=== PATIENT | male | born 1990 | race Caucasian/White ===

== ENCOUNTER 2018-10-10 08:46 | Emergency (ER) | payer OTHER, BC ==
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
== END 2018-10-10 14:30 | disposition expired ==
LOC: JD.ED 08:46
DX: T79.4XXA Traumatic shock, initial encounter (principal); S72.92XA Unspecified fracture of left femur, initial encounter for closed fracture; S82.301A Unspecified fracture of lower end of right tibia, initial encounter for closed fracture; S82.831A Other fracture of upper and lower end of right fibula, initial encounter for closed fracture; V59.40XA Driver of pick-up truck or van injured in collision with unspecified motor vehicles in traffic accident, initial encounter
CPT/HCPCS: 99285; G0390